=== PATIENT | female | born 1965 | race Caucasian/White ===

== ENCOUNTER 2023-12-22 14:59 | Emergency (ER) | payer OTHER, SELFPAY ==
[2023-12-22 15:08] VITALS: BP 114/79; PULSE 56; RESP 16; TEMP 37.2; O2SAT 96
--- NOTE | 2023-12-22 15:15 | DI.RAD_ITS ---
Exam(s) XR HAND RT COMPLETE EXAM: XR HAND RT COMPLETE CLINICAL HISTORY: right hand pain. TECHNIQUE: 2D digital imaging was performed of the right hand. Three images were obtained. AP, late ral and oblique views were obtained. COMPARISON: No exams were available for comparison FINDINGS: BONES: No acute fracture is present. There is a crescentic osseous fragment at the anterior aspect o f the base of the middle phalanx of the 4th finger. The fragment appears well corticated. There is no associated soft tissue swelling. It does not correspond to the patient's site of pain. No bony d estructive lesion is seen. JOINTS: No dislocation present. Moderately severe degenerative changes are seen at the 1st CMC joint characterized by joint space narrowing and osteophytes. SOFT TISSUE: Normal. IMPRESSION: 1. Moderately severe degenerative changes seen at the 1st CMC joint. 2. No acute fracture or dislocation is seen in the thumb. 3. Osseous fragment at the anterior aspect of the base of the middle phalanx of the 4th finger which appears old. Please correlate clinically with the patient's site of pain. DATA REPOSITORY: RADIATION DOSE DELIVERED:
--- NOTE | 2023-12-22 15:58 | DI.VRAD_ITS ---
PROCEDURE INFORMATION: Exam: XR Right Hand Exam date and time: 12/22/2023 3:30 PM Age: 58 years old Clinical indication: Patient HX: Right hand pain, area of base of thumb; Per PT: Fall while x-country skiing TECHNIQUE: Imaging protocol: Radiologic exam of the right hand. Views: 3 or more views. COMPARISON: No relevant prior studies available. FINDINGS: Bones/joints: There are degenerative changes of the first carpometacarpal and scaphotrapeziumtrapezoid joints. No acute fractures. Soft tissues: Normal. IMPRESSION: Degenerative arthritis base of the thumb. Dictated and Authenticated by: Omero Mendoza MD. Ordering:VIRIDIANA Ellis MD
--- NOTE | 2023-12-22 16:04 | ED.GENADUL_ITS ---
HPI General Date/Time Provider Initiated Documentation: 12/22/23 15:05 . Limitations to Documentation: no limitations . Information obtained by: patient . HPI Narrative: 58-year-old female without significant past medical history presents for evaluation of acute onset right thumb pain. She is right-hand dominant. Just prior to arrival she was cross-country skiing when she fell. She was holding onto a pole when she fell onto an outstretched right hand. She reports acute onset of right thumb pain. Localizes the pain to the base of the thumb. Worse with touching the area, no numbness or tingling. No weakness or loss of use of the thumb. No other injuries during the fall. No medications taken prior to arrival and declines any need for pain medications at this time. Related Data Home Medications Medication Instructions Recorded Confirmed Unknown [No Known Home Meds] 12/22/23 12/22/23 Allergies Allergy/AdvReac Type Severity Reaction Status Date / Time No Known Allergies Allergy Unverified 12/22/23 15:10 General Stated Complaint: Orthopedic PILI: 4 Exam Narrative Exam Narrative: Review of Systems: All systems reviewed & are unremarkable except as noted in HPI and below Well-developed, no acute distress NCAT PERRL, normal conjunctiva RRR Unlabored respiratory effort Nondistended abdomen Right wrist nontender, no snuffbox tenderness, there is tenderness bruising and swelling at the base of the thumb, she has full range of motion and normal strength of the thumb, opposition intact No rashes or lesions. no focal neurologic deficits Appropriate mood and affect Course Vital Signs Vital signs: Vital Signs Temperature 37.2 C 12/22/23 15:08 Pulse 56 L 12/22/23 15:08 Respiratory Rate 16 12/22/23 15:08 Blood Pressure 114/79 12/22/23 15:08 Pulse Oximetry 96 12/22/23 15:08 Temperature 37.2 C 12/22/23 15:08 Temperature Source Temporal Artery Scan 12/22/23 15:08 Pulse 56 L 12/22/23 15:08 Respiratory Rate 16 12/22/23 15:08 Respiratory Effort Normal, Non-Labored 12/22/23 15:13 Blood Pressure 114/79 12/22/23 15:08 Pulse Oximetry 96 12/22/23 15:08 Pain Level 6 12/22/23 15:13 Medical Decision Making Emergent evaluation of acute traumatic thumb injury. Initial differential includes fracture, ligamentous injury. Examination does have tenderness and her mechanism of injury is concerning for likely ligamentous injury. X-ray obtained, reviewed and independently interpreted by me and this does not reveal an acute fracture. However based on her examination and history and that this is her dominant hand, she is placed in a thumb spica splint. She has been referred to orthopedic surgery for further evaluation and likely MRI imaging. Medical Records Medical records reviewed: Yes I reviewed the patient's medical records. Quality:[facility] Health Related Social Needs: No Data to Display [facility] All Active Problems Injury of thumb, right (Acute) Skifernando's thumb (Acute) Social History Smoking/Tobacco Use Status: Never Smoking risk assessment performed?: Yes Alcohol Intake: current Alcohol Intake frequency: a few times a week Drug use: Never Substance use type: does not use Housing: house Do you feel safe at home: Yes Do you feel safe in your relationship?: Yes PAWSS Have you Been Recently Intoxicated or Drunk Within the Last 30 days?: No Have you Ever Experienced Previous Episodes of Alcohol Withdrawal?: No Have you ever Experienced Withdrawal Seizures?: No Have you ever Experienced Delirium Tremens(DT)s?: No Have you ever undergone Alcohol Rehabilitation Treatment (i.e, inpt ot outpatient treatment programs)?: No Have you ever Experienced Blackouts?: No Have you ever Combined Alcohol with other Downers within the last 90 days?: No Have you ever Combined Alcohol with any other Substance of Abuse during the last 90 days?: No Positive Blood Alcohol level on Presentation? [PCS.BAL]: No Evidence of Increased Autonomic Activity (i.e. HR>120, tremor, sweating, agitation, nausea)?: No Result: 0 Discharge Plan Disposition Patient Disposition: Home Discharge Details Clinical Impression: Mendez's thumb, Injury of thumb, right Primary Care Provider: Unknown,Unknown ED Provider: Gerald Garibay Home Meds and New Rx's Prescriptions: No Action No Known Home Meds Discharge Instructions Instructions: Geetaer's Thumb (ED) Additional Instructions: PLEASE WEAR SPLINT UNTIL YOU FOLLOW UP WITH ORTHO REFERRAL SENT THEY SHOUD CONTACT YOU SOON WITH APPOINTMENT INFORMATION Referrals: Cruz Law MD [ [facility]] - (RIGHT THUMB, DOMINATE HAND )
== END 2023-12-22 16:13 | disposition home or self-care (01) ==
PROVIDERS: Emergency Provider Emergency Medicine
DX: S63.641A Sprain of metacarpophalangeal joint of right thumb, initial encounter (principal); M18.11 Unilateral primary osteoarthritis of first carpometacarpal joint, right hand; W00.0XXA Fall on same level due to ice and snow, initial encounter; Y93.24 Activity, cross country skiing; Y92.838 Other recreation area as the place of occurrence of the external cause
CPT/HCPCS: 99283; 73130